=== PATIENT | female | born 1965 | race Caucasian/White ===

== ENCOUNTER 2019-08-22 05:36 | Day surgery (SDC) | payer BC ==
[2019-08-15 08:35] VITALS: BMI 20.9
[2019-08-22] MEDS ORDERED: Thrombin 5000 UNITS/5 ML VIAL ONE (06:20)
[2019-08-22] MEDS ORDERED: Bupivacaine HCl 0.5%/Epinephrine 1:200,000/PF 30 ml Vial ONE (06:20)
[2019-08-22] MEDS ORDERED: Fentanyl 100 MCG/2 ML VIAL ONE ×3 (06:59→08:33)
[2019-08-22] MEDS ORDERED: Midazolam HCl 2 mg/2 ml Vial ONE (07:14)
[2019-08-22] MEDS ORDERED: HYDROmorphone 2 MG/ML VIAL ONE (08:46)
[2019-08-22] MEDS ORDERED: traMADol HCl 50 MG TAB ONE (11:28)
--- NOTE | 2019-08-22 13:57 | OP ---
DATE OF PROCEDURE: 08/22/2019 DAM WORKER: Kamaljit Irene PA-C INDICATION: Pain. 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 PROCEDURE PERFORMED: Right L3-4 decompression. ANESTHESIA: General. DESCRIPTION OF PROCEDURE: The patient was brought into the operating room and placed under general anesthesia. She was flipped from the supine to prone position on the operating room table. An incision was planned over the L3-L4 segment. After prepping and draping and after an appropriate operative pause, the incision was created. The soft tissues were swept away from midline. A self-retaining retractor was placed. A high-speed cutting drill bit was used to perform a laminectomy along the inferior aspect of L3 and the superior aspect of L4. The laminectomy was completed using 2, 3, and 4 mm Kerrisons. After decompressing the lateral recess, which included the descending L4 nerve root as well as the proximal exiting portion of L3, the wound was irrigated. Hemostasis was maintained throughout. The wound was then closed in anatomic layers, and a pressure dressing was applied. There were no known procedural complications. Job ID: [id number]
[2019-08-22] MEDS ORDERED: Lidocaine 2% PF 5 ML VIAL ONE (17:40)
[2019-08-22] MEDS ORDERED: PROPOFOL 200 MG/20 ML VIAL ONE (17:40)
[2019-08-22] MEDS ORDERED: Ondansetron PF 4 MG/2 ML Vial ONE (17:40)
[2019-08-22] MEDS ORDERED: Glycopyrrolate 0.2 MG/ML 5 ML SYRINGE ONE (17:40)
[2019-08-22] MEDS ORDERED: diphenhydrAMINE 50 MG/ML VIAL ONE (17:40)
[2019-08-22] MEDS ORDERED: Ketorolac Tromethamine 30 MG/ML VIAL ONE (17:40)
[2019-08-22] MEDS ORDERED: Dexamethasone 20 MG/5 ML VIAL ONE (17:40)
[2019-08-22] MEDS ORDERED: Rocuronium Bromide 10 MG/ML (10ML VIAL) ONE (17:40)
== END 2019-08-23 13:00 | disposition home or self-care (01) ==
LOC: SDC 05:36
PROVIDERS: ATTEND Neurological Surgery
PROC: 01NB0ZZ Release Lumbar Nerve, Open Approach (ICD-10-PCS; principal; 2019-08-22)
DX: M48.061 Spinal stenosis, lumbar region without neurogenic claudication (principal); M54.16 Radiculopathy, lumbar region; F41.9 Anxiety disorder, unspecified; Z79.899 Other long term (current) drug therapy; Z88.1 Allergy status to other antibiotic agents; Z88.5 Allergy status to narcotic agent
CPT/HCPCS: 76000; J0131; J0670; J0690; J1100; J1170; J1200; J1885; J2001; J2250; J2405; J2704; J3010

== ENCOUNTER 2019-09-27 16:16 | Outpatient (CLI) | payer BC ==
--- NOTE | 2019-09-27 17:13 | RAD ---
2 views of the right hip INDICATION: Right hip pain COMPARISON: None FINDINGS: Bones: No acute osseous abnormality. Bone mineralization appears within normal limits. Hip joint: Radiographically normal. SI joints and symphysis pubis: Radiographically normal. Intrapelvic contents: Small scattered phleboliths Surrounding soft tissues: Radiographically normal. IMPRESSION: 1. No acute osseous abnormality.
--- NOTE | 2019-09-28 08:20 | RAD ---
2 views of the right hip INDICATION: Right hip pain COMPARISON: None FINDINGS: Bones: No acute osseous abnormality. Bone mineralization appears within normal limits. Hip joint: Radiographically normal. SI joints and symphysis pubis: Radiographically normal. Intrapelvic contents: Small scattered phleboliths Surrounding soft tissues: Radiographically normal. IMPRESSION: 1. No acute osseous abnormality. Transcribed Date/Time: 09/28/2019 8:20 AM
== END 2019-09-27 16:17 | disposition home or self-care (01) ==
LOC: TBSIIMAG 16:16
PROVIDERS: ATTEND Neurological Surgery
DX: M25.551 Pain in right hip (principal)

== ENCOUNTER 2019-10-18 08:23 | Outpatient (CLI) | payer BC ==
--- NOTE | 2019-10-18 08:53 | CT ---
LUMBAR SPINE CT: DATE: 10/18/2019. HISTORY: Lumbar radiculopathy, stenosis, prior back surgery, right lower extremity pain. TECHNIQUE: Axial CT imaging at 3 mm intervals through the lumbar spine with coronal and sagittal reformatted latha ging. FINDINGS: Evaluation for central canal and/or neural foraminal stenosis is limited on routine CT examination. The coronal reformatted imaging demonstrates lumbar spine levoscoliosis centered at L2-3 with leftwar d translation of the L3 vertebral body with respect to the L2 vertebral body by approximately 1.1 cm. Imaged extraspinal structures demonstrate no acute findings. There is minimal retrolisthesis at L3-4 measuring 4 mm. T12-L1: No osseous cause of significant central canal or neural foraminal stenosis. L1-2: No osseous cause of significant central canal or neural foraminal stenosis. L2-3: Severe disc space narrowing and prominent sclerotic changes involve the inferior half of L2 and superior half of L3 with anterior osteophyte formation. There are erosive changes involving the inferior endplate of L2 and superior endplate of L3, likely degenerative in nature. Limited assessmen t of the paravertebral soft tissues in this region appears grossly unremarkable. There is mild osteophyte encroachment on bilateral neural foramina with associated mild neural forami nal stenosis, left greater than right. Probable disc osteophyte complex causing at least mild central canal stenosis. L3-4: There is prominent disc space narrowing with vacuum disc formation. There are prominent subchon dral cystic changes and subchondral sclerotic change involving the right lateral aspect of the intervertebral disc region with an associated vacuum disc. Mild bilateral facet hypertrophy, right gr eater than left. Probable mild bilateral neural foraminal stenosis. No osseous cause of significant central canal stenosis. L4-5: Mild bilateral facet hypertrophy with at least mild bilateral neural foraminal stenosis. Probab le disc bulge. No osseous cause of significant central canal stenosis. L5-S1: There is disc space narrowing with degenerative endplate change and vacuum disc formation. Ari ateral facet hypertrophy with osteophyte encroachment on bilateral neural foramina and mild/moderate bilateral neural foraminal stenosis, left greater than right. No lytic or blastic bone lesion. No acute fracture or evidence of dislocation. The patient appears st atus post hemilaminectomy on the right at the L4 level. IMPRESSION: Severe degenerative changes at L2-3 and L3-4 as detailed above. Evaluation for underlying central can al and/or neural foraminal stenosis could be best achieved to be a lumbar spine MRI. Transcribed Date/Time: 10/18/2019 9:34 AM
== END 2019-10-18 08:24 | disposition home or self-care (01) ==
LOC: TBSIIMAG 08:23
PROVIDERS: ATTEND Neurological Surgery
DX: M47.26 Other spondylosis with radiculopathy, lumbar region (principal); M48.061 Spinal stenosis, lumbar region without neurogenic claudication
CPT/HCPCS: 72131

== ENCOUNTER 2019-10-30 15:22 | Outpatient (CLI) | payer BC ==
--- NOTE | 2019-10-30 17:08 | MRI ---
MR the lumbar spine with and without contrast INDICATION: History of lumbar decompression in 2019 with persistent low back pain COMPARISON: CT of the lumbar spine without contrast TECHNIQUE: Multiplanar multisequence MR images were obtained of lumbar spine with and without IV cont rast. Contrast: 12 cc of MultiHance. FINDINGS: Bone marrow: There is Modic endplate degenerative changes at the L3-4 and L2-3 level. Distal spinal cord and conus: Normal. Conus is seen to terminate at the L1 level. Visualized retroperitoneum and paraspinal soft tissues: Normal. No lymphadenopathy demonstrated. Vertebral levels: L5-S1: There is an asymmetric to the left disc osteophyte complex with facet hypertrophy and loss of disc space height inducing mild neural foraminal encroachment bilaterally. L4-5: There is a broad-based disc bulge with facet hypertrophy inducing mild central canal narrowing and moderate left lateral recess narrowing with potential for impingement of the traversing left L5 nerve root. This is best seen on image 37 of series 6 and image 14 of series 2. The scoliosis in mike tion to the facet degenerative change at this level induces mild left neural foraminal narrowing. L3-4: There is a broad-based disc osteophyte complex with facet hypertrophy inducing mild central can al narrowing with moderate to severe right and [id number] left neural foraminal narrowing. L2-3: There is a broad-based disc osteophyte complex with facet hypertrophy inducing mild central can al narrowing and mild left neural foraminal narrowing. L1-L2: There is a broad-based disc bulge with facet hypertrophy but no appreciable central canal or n eural foraminal narrowing. T12-L1: No appreciable central canal or neuroforaminal narrowing. Postcontrast series: There is enhancement of the right-sided laminectomy changes at L4. There is some enhancement of the adjacent paraspinal musculature on the right likely related to scar. IMPRESSION: 1. Postoperative lumbar spine with mild enhancement in the right-sided laminectomy defect at L4 likel y related to epidural and paravertebral muscular scar. 2. Moderate left lateral recess narrowing with potential for impingement of the traversing left L5 ne rve root. There is mild central canal narrowing at L4-5. There is mild left neural foraminal narrowing at this level. 3. Moderate to severe right and [id number] left neural foraminal narrowing at L3-4. 4. Mild central canal narrowing and mild left neural foraminal narrowing at L2-3. Mild neural foramin al narrowing bilaterally at L5-S1.
== END 2019-10-30 15:23 | disposition home or self-care (01) ==
LOC: SCSMRI 15:22
PROVIDERS: ATTEND Psychiatry & Neurology Neurology
DX: M51.26 Other intervertebral disc displacement, lumbar region (principal); M48.061 Spinal stenosis, lumbar region without neurogenic claudication; M48.07 Spinal stenosis, lumbosacral region; Z98.890 Other specified postprocedural states
CPT/HCPCS: 72158

== ENCOUNTER 2021-09-02 09:58 | Outpatient (CLI) | payer BC | END 2021-09-02 09:59 | disposition home or self-care (01) | LOC: SCSMRI 09:58 | PROVIDERS: ATTEND Surgery | DX: M48.062 Spinal stenosis, lumbar region with neurogenic claudication (principal); M47.26 Other spondylosis with radiculopathy, lumbar region; M51.16 Intervertebral disc disorders with radiculopathy, lumbar region; M41.9 Scoliosis, unspecified; M43.16 Spondylolisthesis, lumbar region | CPT/HCPCS: 72120; 72148 ==